=== PATIENT | male | born 1945 | race Caucasian/White ===

== ENCOUNTER 2017-03-14 20:53 | Emergency (ER) | payer MEDICARE, OTHER ==
[~2017-03-14 20:53] MED LIST: ACETAMINOPHEN-C1 TA; ALTACE PO; ALTACE2.5 MG; ALTACE5 M4 PO; ASPIR 8181 M1 PO; BABY ASPIRIN81 MG; BABY ASPIRIN81 MG PO; BACTRIM DS TAB1 EAC1 PO; BENTYL10 M1 PO; BETAMETHASONE D15 G3 TP; CIPRO250 M2 PO; CIPRO500 MG; CLEOCIN HCL300 M1 PO; COREG12.5 M1 PO; DELTASONE10 MG PO; LIPITOR20 M1 PO; MULTIVITAMIN1 CAP; NORCO 10/325 TA1 TAB; NORCO 5-325 TA1 EACH PO; NORCO 5/325 TAB1 TAB PO; PLAVIX75 M1 PO; TYLENOL #31 TA1 PO; TYLENOL WITH C1 EACH PO; ULTRAM50 M1 PO
[2017-03-14] MEDS ORDERED: LIPITOR40 M1 PO (21:24)
[2017-03-14] MEDS ORDERED: ALTACE5 M4 PO (21:24)
[2017-03-14] MEDS ORDERED: ASPIRIN81 M1 PO (21:24)
[2017-03-14] MEDS ORDERED: COREG12.5 M1 PO (21:24)
[2017-03-14] MEDS ORDERED: VIBRAMYCIN100 M1 PO (21:24)
[2017-03-14] MEDS ORDERED: GLUCOPHAGE1000 M1 PO (21:25)
[2017-03-14] MEDS ORDERED: FLUOCINONIDE TP (21:25)
[2017-03-14] MEDS ORDERED: FLOMAX0.4 M1 PO (21:26)
[2017-03-14 23:00] LABS: BASO % 0.8 % (0-2); BASO ABSOLUTE COUNT 0.1 tho/cmm (0.0-0.2); EOS % 4.3 % (0-7); EOSINOPHIL ABSOLUTE COUNT 0.4 tho/cmm (0.0-0.7); HCT-HEMATOCRIT 39.2 % (36.0-53.5); HGB-HEMOGLOBIN 13.5 gm/dl (13.5-17.0); IMMATURE GRANULOCYTES ABSOLUTE 0.02 tho/cmm (0-0.03); IMMATURE GRANULOCYTES PERCENT 0.2 % (0-0.3); LYMPH % 48.8 % (20-45); LYMPH ABSOLUTE COUNT 4.6 tho/cmm (0.8-4.5); MCH (MEAN CORPUSCULAR HGB) 31.3 pg (28.0-32.0); MCHC MEAN CORPUSCULAR HGB CONC 34.4 % (32.0-36.0); MCV (MEAN CELL VOLUME) 90.7 fl (82.0-96.0); MEAN PLATELET VOLUME 8.8 cmc (9.4-12.4); MONO % 10.3 % (0-12); NEUTROPHIL ABSOLUTE COUNT 3.4 tho/cmm (1.6-8.0); NEUTROPHIL-AUTOMATED 3.4 tho/cmm (1.6-8.0); NEUTROPHILS % 35.6 % (40-80); PLATELET COUNT 309 tho/cmm (150-450); RED BLOOD COUNT 4.32 mil/cmm (4.40-5.70); RED CELL DISTRIBUTION WIDTH 12.8 % (12.4-16.4); WHITE BLOOD COUNT 9.4 tho/cmm (4.0-10.0)
[2017-03-14 23:12] LABS: ANION GAP 12 mmol/L (0-20); BLOOD UREA NITROGEN 33 mg/dl (6-24); CALCIUM 9.4 mg/dl (8.5-10.5); CARBON DIOXIDE-VENOUS 26 mmol/L (22-32); CHLORIDE 109 mmol/l (96-110); CREATININE 1.24 mg/dl (0.60-1.30); GLUCOSE 102 mg/dL (70-110); POTASSIUM 4.6 mmol/L (3.7-5.1); SODIUM 142 mmol/L (135-145); eGFR VALUE FOR BLACK 67 mL/Min
== END 2017-03-15 00:25 ==
LOC: EDMED 20:53
PROVIDERS: Physician Assistant
DX: R60.0 Localized edema (principal); I10 Essential (primary) hypertension; Z87.442 Personal history of urinary calculi; F17.210 Nicotine dependence, cigarettes, uncomplicated; Z79.82 Long term (current) use of aspirin; Z79.899 Other long term (current) drug therapy